=== PATIENT | male | born 1950 | race Caucasian/White ===

== ENCOUNTER 2020-01-11 04:05 | Emergency (ER) | payer MEDICARE, OTHER ==
[~2020-01-11] VITALS: Ht 172.7 cm; Wt 147.7 kg
[2020-01-11 04:48] LABS: BASO # 0.1 10^3/uL (0.0-0.2); BASO % 0.5 % (0.0-1.0); EOS # 0.4 10^3/uL (0.0-0.5); EOS % 3.7 % (0.0-3.0); HEMATOCRIT 44.4 % (42.0-52.0); HEMOGLOBIN 14.9 g/dl (13.5-17.5); LYMPH # 1.6 10^3/uL (1.5-5.0); LYMPH % 16.6 % (24.0-44.0); MEAN CORPUSCULAR HGB CONC 33.6 g/dl (32.0-36.5); MEAN CORPUSCULAR VOLUME 89.5 fl (80.0-96.0); MONO # 0.6 10^3/uL (0.0-0.8); NEUTROPHILS # 7.1 10^3/uL (1.5-8.5); NEUTROPHILS % 72.5 % (36.0-66.0); PLATELET COUNT, AUTOMATED 185 10^3/uL (150-450); RED BLOOD COUNT 4.96 10^6/uL (4.30-6.10); WHITE BLOOD COUNT 9.8 10^3/uL (4.0-10.0)
[2020-01-11 04:58] LABS: INR 0.88; PROTHROMBIN TIME 12.1 SECONDS (12.5-14.3)
[2020-01-11 04:59] LABS: PARTIAL THROMBOPLASTIN TIME 29.3 SECONDS (24.2-38.5)
--- NOTE | 2020-01-11 05:18 | REPVR ---
PROCEDURE INFORMATION: Exam: CT Head Without Contrast Exam date and time: 01/11/2020 4:29 AM Age: 69 years old Clinical indication: Injury or trauma; Fall; Concussion/head injury; Consciousness not specified TECHNIQUE: Imaging protocol: Computed tomography of the head without contrast. Radiation optimization: All CT scans at this facility use at least one of these dose optimization techniques: automated exposure control; mA and/or kV adjustment per patient size (includes targeted exams where dose is matched to clinical indication); or iterative reconstruction. COMPARISON: No relevant prior studies available. FINDINGS: Brain: There is mild patchy white matter hypoattenuation with no associated mass effect. 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 Cerebral ventricles: No ventriculomegaly. Bones/joints: There is right frontal soft tissue swelling with no underlying skull fracture. Paranasal sinuses: Visualized sinuses are unremarkable. No fluid levels. Mastoid air cells: Visualized mastoid air cells are well aerated. Soft tissues: Unremarkable. IMPRESSION: 1. Right frontal soft tissue swelling with no underlying skull fracture, intracranial hemorrhage, mass effect or midline shift. 2. Mild chronic microangiopathic changes. Electronically signed by: Ad Stone On 01/11/2020 05:18:06 AM
--- NOTE | 2020-01-11 05:21 | REPVR ---
PROCEDURE INFORMATION: Exam: CT Maxillofacial Without Contrast Exam date and time: 01/11/2020 4:29 AM Age: 69 years old Clinical indication: Face pain; Additional info: Trauma TECHNIQUE: Imaging protocol: Computed tomography images of the face without contrast. Radiation optimization: All CT scans at this facility use at least one of these dose optimization techniques: automated exposure control; mA and/or kV adjustment per patient size (includes targeted exams where dose is matched to clinical indication); or iterative reconstruction. COMPARISON: No relevant prior studies available. FINDINGS: Orbital cavity: Orbits are normal. Globes are unremarkable. Bones/joints: No acute fracture. Paranasal sinuses: Normal. No air-fluid levels. Soft tissues: Unremarkable. Dental: Periapical lucencies seen at the tip of multiple mandibular and maxillary teeth. IMPRESSION: 1. No CT evidence acute traumatic facial bone injuries. 2. Periapical lucencies at the tip of multiple mandibular and maxillary teeth suggestive of periodontal/pulpal disease. Electronically signed by: Ad Stone On 01/11/2020 05:20:47 AM
[2020-01-11 05:24] LABS: ALBUMIN 3.2 GM/DL (3.2-5.2); ALT/SGPT 36 U/L (12-78); BILIRUBIN,DIRECT < 0.1 MG/DL (0.0-0.2); BILIRUBIN,TOTAL 0.4 MG/DL (0.2-1.0); BLOOD UREA NITROGEN 26 MG/DL (7-18); CALCIUM LEVEL 8.2 MG/DL (8.8-10.2); CARBON DIOXIDE LEVEL 28 MEQ/L (21-32); CHLORIDE LEVEL 104 MEQ/L (98-107); CPK CREATINE PHOSPHOKINASE 299 U/L (39-308); CREATININE FOR GFR 1.85 MG/DL (0.70-1.30); ETHYL ALCOHOL (ETHANOL) < 0.003 % (0.000-0.010); GLUCOSE, FASTING 129 MG/DL (70-100); MB/CK RELATIVE INDEX 1.34 (< OR =4); POTASSIUM SERUM 4.3 MEQ/L (3.5-5.1); SODIUM LEVEL 140 MEQ/L (136-145); TROPONIN I < 0.02 NG/ML (< 0.10)
--- NOTE | 2020-01-11 05:27 | REPVR ---
PROCEDURE INFORMATION: Exam: CT Cervical Spine Without Contrast Exam date and time: 01/11/2020 4:29 AM Age: 69 years old Clinical indication: Neck pain; Additional info: Trauma TECHNIQUE: Imaging protocol: Computed tomography images of the cervical spine without contrast. Radiation optimization: All CT scans at this facility use at least one of these dose optimization techniques: automated exposure control; mA and/or kV adjustment per patient size (includes targeted exams where dose is matched to clinical indication); or iterative reconstruction. COMPARISON: No relevant prior studies available. FINDINGS: Bones/joints: No acute fracture. Normal alignment. Discs/Spinal canal/Neural foramina: There is extensive atlanto dense degenerative and productive changes with calcifications. Ossifications seen in the region of the apical ligament. 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 Extensive bulky anterior disc osteophyte complex formation are seen throughout the cervical spine. There is ankylosis of C6-C7 through T3-T4. There is severe left C4-C5 and C5-C6 neural foraminal narrowing. Soft tissues: Unremarkable. Lungs: See "Discs/Spinal canal/Neural foramina" finding. IMPRESSION: No CT evidence of acute traumatic cervical spine injury. Electronically signed by: Ad Stone On 01/11/2020 05:27:15 AM
[2020-01-11] MEDS ORDERED: SIMV20TA22 PO (06:20)
[2020-01-11] MEDS ORDERED: METO1TAB33 PO (06:20)
[2020-01-11] MEDS ORDERED: CHLO125TA PO (06:20)
[2020-01-11] MEDS ORDERED: AMLO1TAB25 PO (06:20)
[2020-01-11] MEDS ORDERED: LISI40TA PO (06:20)
[2020-01-11] MEDS ORDERED: IPRA0.00 INH (06:20)
[2020-01-11] MEDS ORDERED: BAYE325T12 PO (06:20)
[2020-01-11] MEDS ORDERED: ZYRTTAB8 PO (06:20)
[2020-01-11] MEDS ORDERED: TERA2CAP3 PO (06:20)
[2020-01-11] MEDS ORDERED: SYNT100T PO (06:20)
[2020-01-11] MEDS ORDERED: ALLO100T PO (06:20)
[2020-01-11] MEDS ORDERED: OMEP-221 PO (06:20)
[2020-01-11] MEDS ORDERED: SPIR1AER INH (06:20)
[2020-01-11] MEDS ORDERED: ISOS60TA2 PO (06:20)
[2020-01-11] MEDS ORDERED: DERMABOND TOPICAL SKIN ADHESIVE TOP ONE (06:45)
--- NOTE | 2020-01-11 06:51 | REPVR ---
PROCEDURE INFORMATION: Exam: XR Pelvis Exam date and time: 01/11/2020 6:12 AM Age: 69 years old Clinical indication: Other: Trauma TECHNIQUE: Imaging protocol: XR pelvis. Views: 1 or 2 view. COMPARISON: No relevant prior studies available. FINDINGS: Tubes, catheters and devices: This study is limited due to multiple overlying densities from the patient's pants, belt and wires. 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 Soft tissues: Unremarkable. IMPRESSION: Limited study due to external overlying densities. Within limitations of the exam no gross displaced bony fracture seen. Electronically signed by: Ad Stone On 01/11/2020 06:51:50 AM
--- NOTE | 2020-01-11 06:52 | REPVR ---
PROCEDURE INFORMATION: Exam: XR Chest, 1 View Exam date and time: 01/11/2020 6:12 AM Age: 69 years old Clinical indication: Other: Trauma TECHNIQUE: Imaging protocol: XR of the chest Views: 1 view. COMPARISON: No relevant prior studies available. FINDINGS: Lungs: Unremarkable. No consolidation. Pleural space: Unremarkable. No pleural effusion. No pneumothorax. Heart/Mediastinum: Unremarkable. No cardiomegaly. Bones/joints: Unremarkable. IMPRESSION: No acute findings. Electronically signed by: Ad Stone On 01/11/2020 06:52:38 AM
[2020-01-11 07:15] VITALS: BP 151/66
--- NOTE | 2020-01-11 20:31 | ECGEPIP ---
[facility] - ED Test Date: 2020-01-11 Pat Name: ANÍBAL SAWYER Department: Room: - Gender: Male [employer]: [place] : 1950 Requested By: LAWRENCE PELAEZ Order Number: [id number] Reading MD: Rhea Fernández Measurements Intervals [place] Rate: 60 P: 57 MI: 209 QRS: -57 QRSD: 133 T: 35 QT: 436 QTc: 436 Interpretive Statements SINUS RHYTHM WITH OCCASIONAL VENTRICULAR PREMATURE COMPLEXES MARKED LEFT AXIS DEVIATION LEFT BUNDLE BRANCH BLOCK NO PRIOR Electronically Signed on 01-11-2020 20:30:50 EDT by Rhea Feránndez
== END 2020-01-11 07:20 | disposition home or self-care (01) ==
LOC: M ED 04:05
DX: S01.81XA Laceration without foreign body of other part of head, initial encounter (principal); W06.XXXA Fall from bed, initial encounter; Y92.003 Bedroom of unspecified non-institutional (private) residence as the place of occurrence of the external cause; Y93.9 Activity, unspecified; Y99.9 Unspecified external cause status; K08.89 Other specified disorders of teeth and supporting structures; M25.78 Osteophyte, vertebrae; I10 Essential (primary) hypertension; R94.31 Abnormal electrocardiogram [ECG] [EKG]; J44.9 Chronic obstructive pulmonary disease, unspecified; I25.10 Atherosclerotic heart disease of native coronary artery without angina pectoris; Z79.899 Other long term (current) drug therapy
CPT/HCPCS: 36415; 70450; 70486; 71045; 72125; 72170; 80048; 80076; 82550; 82553; 84484; 85025; 85610; 85730; 86850; 86900; 86901; 93005; 93041; 94760; 99285; G0480